=== PATIENT | female | born 1985 | race Caucasian/White ===

== ENCOUNTER 2017-02-24 12:18 | Emergency (ER) | payer OTHER ==
[2017-02-24 12:24] VITALS: BMI 22.1
[2017-02-24] MEDS ORDERED: HYDROmorphone HCL CARPU-JECT 1 MG/1 ML DISP.SYRIN IVPUSH ONE ×2 (13:03→14:07)
[2017-02-24] MEDS ORDERED: SODIUM CHLORIDE 0.9% 500 ML INFUS.BAG IV ONE (13:03)
[2017-02-24] MEDS ORDERED: ONDANSETRON 4 MG/2 ML VIAL IVPUSH ONE (13:03)
[2017-02-24] MEDS ORDERED: HYDROmorphone HCL CARPU-JECT 1 MG/1 ML DISP.SYRIN ONE ×3 (13:07→16:37)
--- NOTE | 2017-02-24 13:13 | PDOC ---
History of Present Illness - General Chief Complaint: Pain Stated Complaint: POST-OP/ PAIN, BLURRY VISION Time Seen by Provider: 02/24/17 12:48 History Source: Patient Exam Limitations: No Limitations - History of Present Illness Travel History: Yes ([facility] [place] 02/05/17) Initial Comments: 02/24/17 13:12 31 yr female s/p liposuction and tummy tuck on 02/08/17 in the [place]. Pt states she has had increasing pain with abd swelling, tenderness to left side of abdomen . Pt has no urianry complaints states she is constipated. Pt has no medical history is allergic to PCN. Pt has an IUD, LMP unknown. 02/24/17 14:16 02/24/17 16:09 02/24/17 18:18 Timing/Duration: reports: constant, getting worse Quality: reports: severe Abdominal Pain Onset Location: reports: LUQ, generalized abdomen Pain Radiation: reports: flank, back Activities at Onset: reports: none Past History - Past Medical History Allergies/Adverse Reactions: Allergies Allergy/AdvReac Type Severity Reaction Status Date / Time Penicillins Allergy Rash Verified 02/24/17 12:24 Home Medications: Ambulatory Orders No Home Medications 0 dose .ROUTE UTDICT 12/04/13 Other medical history: DENIES - Psycho/Social/Smoking Cessation Hx Anxiety: No Suicidal Ideation: No Smoking History: Never smoked Have you smoked in the past 12 months: No Number of Cigarettes Smoked Daily: 0 Hx Alcohol Use: No Drug/Substance Use Hx: No Substance Use Type: None Abd/GI Specific PMHX - Complaint Specific PMHX Colitis: No Diverticulitis: No Gall Bladder Disease: No GERD: No Hepatitis: No Irritable Bowel Synd (IBS): No Pancreatitis: No GI Ulcer Disease: No Review of Systems - Review of Systems Able to Perform ROS?: Yes Is the patient limited Brazilian proficient: No Constitutional: Yes: Symptoms Reported, Chills, Fever ABD/GI: Yes: Symptoms Reported, See HPI *Physical Exam - Vital Signs Last Vital Signs Temp Pulse Resp BP Pulse Ox 98.3 F 144 H 20 142/93 100 02/24/17 12:20 02/24/17 12:20 02/24/17 12:20 02/24/17 12:20 02/24/17 12:20 - Physical Exam General Appearance: Yes: Nourished, Moderate Distress HEENT: positive: EOMI, ARMEN, TMs Normal Neck: positive: Supple Respiratory/Chest: positive: Lungs Clear, Decreased Breath Sounds. negative: Chest Tender Cardiovascular: positive: Tachycardia, Other (apical HR regluar tachy 129 ) Gastrointestinal/Abdominal: positive: Tender, Distended Musculoskeletal: positive: Normal Inspection Extremity: positive: Normal Inspection, Normal Range of Motion, Pedal Edema ( bilateral lower extremity edema ) Integumentary: positive: Pale, Other (left flank crepitus , edema) Neurologic: positive: Fully Oriented, Alert, Normal Mood/Affect, Normal Response , Motor Strength 02/19 ED Treatment Course - LABORATORY CBC & Chemistry Diagram: 02/24/17 13:30 02/24/17 13:30 - Consult/PCP Time Called: 13:30 (surgery Forrest Randolph) Medical Decision Making - Critical Care Time Total Critical Care Time (minutes): 120 Critical Care Statement: The care of this patient involved high complexity decision making to prevent further life threatening deterioration of the patient 's condition and/or to evalute & treat vital organ system(s) failure or risk of failure. - Medical Decision Making 02/24/17 13:30 cc: abd pain and swelling s/p liposuction and tummy tuck in the DR on 02/08/17 fever, chills abd tenderness and swelling will get septic workup consult surgery pt is ambulatory making urine, has no urianry complaints. case discussed with ER attending to discuss IVAB . 02/24/17 13:31 spoke to Forrest COLEMAN of surgery and will see pt in ER. I have put a call into . 02/24/17 13:33 states pt needs transfer to another facility for plastics surgery evaluation. I have discussed this with in the ER who states pt needs to be transfered for higher level of care, pt is septic, acute renal faliure. Pt needs higher level of care at a tertiary facility. 02/24/17 14:01 02/24/17 14:07 02/24/17 14:18 Red [phone] (pt's ) cell phone number 02/24/17 14:32 Spoke with Plastic surgery resident Dr. Nam at [facility] who states pt should have abd plain film, CXR and to r/o perforated abdomen. pt to be transfered to ER at [facility] for higher level of care. This case has been discussed in detail with ER attending . 02/24/17 15:28 02/24/17 15:33 02/24/17 15:48 report given to ER attending at [facility] accepted transfer. Dr. Malave ER attending, labs discussed, PE discussed. pt to cat scan awaiting milk pickup truck driver from [facility] . I have spoke to the Red Marvin who is aware of the transfer, consent was obtained. 02/24/17 16:11 [facility] is here to milk pickup truck driver the pt. pt currently in cat scan . 02/24/17 16:46 vitals stable pain is controlled for transfer in the ambulance. All paperwork and CD has been given to the ambulance personel. *DC/Admit/Observation/Transfer Diagnosis at time of Disposition: Sepsis Qualifiers: Sepsis type: sepsis due to unspecified organism Qualified Code(s): A41.9 - Sepsis, unspecified organism - Discharge Dispostion Disposition: TRANSFER ACUTE CARE/OTHER HOSP Condition at time of disposition: Poor - Transfer to Acute Care Facility Receiving Facility: [facility] Accepting Physician:: Transfer comment: 02/24/17 16:36
[2017-02-24] MEDS ORDERED: HYDROmorphone HCL CARPU-JECT 1 MG/1 ML DISP.SYRIN IVPB ONE (13:29)
[2017-02-24] MEDS ORDERED: CIPROFLOXACIN 400 MG/D5W 200 ML IVPB ONE (13:34)
[2017-02-24] MEDS ORDERED: METRONIDAZOLE 500 MG PREMIXED 100 ML IVPB ONE ×2 (13:34→14:55)
[2017-02-24 13:53] LABS: MCH 28.4 pg (25.7-33.7); MCHC 33.2 g/dl (32.0-36.0); MEAN CELL VOLUME 85.4 fl (80-96); MEAN PLT VOLUME 6.1 fl (7.5-11.1); PLATELET COUNT 298 K/MM3 (134-434); RDW 14.4 % (11.6-15.6)
[2017-02-24 13:56] LABS: WHITE BLOOD COUNT 38.2 K/mm3 (4.0-10.0)
[2017-02-24] MEDS ORDERED: CLINDAMYCIN 900 MG PREMIX IVPB 50 ML IVPB ONE (13:57)
[2017-02-24] MEDS ORDERED: SODIUM CHLORIDE 1,000 ML IV STA (14:41)
[2017-02-24 15:03] LABS: ALBUMIN 2.8 g/dl (3.4-5.0); BILIRUBIN,TOTAL 0.6 mg/dL (0.2-1.0); CALCIUM 9.1 mg/dL (8.5-10.1); COCKROFT - GAULT 13.141; CREATININE 6.9 mg/dL (0.55-1.02); TOT PROT 6.6 g/dl (6.4-8.2)
[2017-02-24 15:09] LABS: URINE APPEARANCE SLCLOUDY; URINE BILIRUBIN NEGATIVE (NEGATIVE); URINE COLOR YELLOW; URINE GLUCOSE (UA) 1+ (NEGATIVE); URINE KETONE NEGATIVE (NEGATIVE); URINE NITRITE NEGATIVE (NEGATIVE); URINE PROTEIN NEGATIVE (NEGATIVE); URINE UROBILINOGEN NEGATIVE E.U./dl (0.2-1.0)
[2017-02-24 15:16] LABS: URINE BLOOD 2+ (NEGATIVE); URINE LEUK ESTERASE 2+ (NEGATIVE)
[2017-02-24 16:21] LABS: URINE MUCUS RARE; URINE RBC 33 /hpf (0-3); URINE WBC 40 /hpf (3-5)
[2017-02-24 18:29] LABS: HYPOCHROMIA 1+; PLATELET ESTIMATE ADEQUATE (NORMAL); POLYCHROMASIA FEW
[2017-02-25 14:49] VITALS: TEMP 98.4
[2017-02-25 15:05] VITALS: BP 122/83; PULSE 123
--- NOTE | 2017-03-05 15:15 | PDOC ---
Patient Follow-up (Call Back) - Post ED Follow - Up Chief Complaint: SIRS, Suspected/Possible Condition at time of discharge: Poor Disposition at time of original discharge: TRANSFER ACUTE CARE/OTHER HOSP - Disposition Additional Instructions/Notes: called pt as a courtesy to follow up on her transfer to [facility]. spoke with , pt is home and is doing much better.
== END 2017-02-24 16:58 | disposition short-term general hospital (02) ==
LOC: JER 12:18
PROC: 3E0337Z Introduction of Electrolytic and Water Balance Substance into Peripheral Vein, Percutaneous Approach (ICD-10-PCS; principal; 2017-02-24)
PROC: 3E03329 Introduction of Other Anti-infective into Peripheral Vein, Percutaneous Approach (ICD-10-PCS; 2017-02-24)
PROC: 3E033NZ Introduction of Analgesics, Hypnotics, Sedatives into Peripheral Vein, Percutaneous Approach (ICD-10-PCS; 2017-02-24)
PROC: 3E033GC Introduction of Other Therapeutic Substance into Peripheral Vein, Percutaneous Approach (ICD-10-PCS; 2017-02-24)
DX: A41.89 Other specified sepsis (principal)
CPT/HCPCS: 36415; 71010-TC; 74020-TC; 74176-TC; 80053; 81003; 81015; 83605; 84703; 85025; 87040; 99285-25

== ENCOUNTER 2017-03-13 08:57 | Emergency (ER) | payer OTHER ==
[2017-03-13 09:01] VITALS: BMI 23.8
--- NOTE | 2017-03-13 09:43 | PDOC ---
History of Present Illness - General Chief Complaint: Urinary Problem Stated Complaint: URINARY PROBLEM Time Seen by Provider: 03/13/17 09:10 History Source: Patient Exam Limitations: No Limitations - History of Present Illness Initial Comments: 03/13/17 09:43 Patient is here for reevaluation for urinary retention. Was seen in this emergency department 2 weeks ago, for abdominal pain, fevers, status post liposuction and tummy tuck performed in the [place] on February 08. At that time patient had no obvious sign of bowel perforation or free air in abdomen however had a grossly enlarged bladder and inability to void. Was transferred to [facility] where patient was retained for 5 days for extensive evaluations and deemed had a postoperative neurogenic bladder, and Watson catheter was placed in her discharge. Denies knowledge of any sepsis although received multiple medications while at [facility] including antibiotics. has not been feverish or with abdominal pain since her discharge approximately 10 days ago. States Watson catheter was extremely irritating therefore requested and removal was performed by urology team yesterday. Since that time patient has been unable to void. Denies fever , denies any abdominal pain however feels significant discomfort and bladder fullness. 03/13/17 09:44 Timing/Duration: unsure, 24 hours, getting worse Severity: moderate Associated Symptoms: reports: denies symptoms Past History - Travel Traveled outside of the country in the last 30 days: No Close contact w/someone who was outside of country & ill: No - Past Medical History Allergies/Adverse Reactions: Allergies Allergy/AdvReac Type Severity Reaction Status Date / Time Penicillins Allergy Rash Verified 03/13/17 09:01 Home Medications: Ambulatory Orders Cefpodoxime Proxetil [Vantin -] 200 mg PO BID 03/13/17 Other medical history: DENIES - Psycho/Social/Smoking Cessation Hx Anxiety: No Suicidal Ideation: No Smoking History: Never smoked Have you smoked in the past 12 months: No Number of Cigarettes Smoked Daily: 0 Information on smoking cessation initiated: No Hx Alcohol Use: No Drug/Substance Use Hx: No Substance Use Type: None Review of Systems - Review of Systems Able to Perform ROS?: Yes Is the patient limited Yoruba proficient: Yes Constitutional: Yes: Symptoms Reported, See HPI, Malaise. No: Fever HEENTM: No: Symptoms Reported Respiratory: Yes: See HPI. No: Symptoms reported, Cough Cardiac (ROS): No: Symptoms Reported ABD/GI: Yes: Symptoms Reported, Abdominal cramping, Other : Yes: Symptoms Reported, See HPI, Other (retention). No: Burning, Dysuria Musculoskeletal: No: Symptoms Reported Integumentary: No: Symptoms Reported Neurological: Yes: See HPI. No: Symptoms reported All Other Systems: Reviewed and Negative *Physical Exam - Vital Signs Last Vital Signs Temp Pulse Resp BP Pulse Ox 98.4 F 118 H 18 129/57 100 03/13/17 08:57 03/13/17 08:57 03/13/17 08:57 03/13/17 08:57 03/13/17 08:57 - Physical Exam General Appearance: Yes: Appropriately Dressed, Apparent Distress HEENT: positive: ARMEN, Normal ENT Inspection, TMs Normal, Pharynx Normal Neck: positive: Supple. negative: Tender Respiratory/Chest: positive: Lungs Clear, Normal Breath Sounds Cardiovascular: positive: Regular Rate Gastrointestinal/Abdominal: positive: Tender, Soft Musculoskeletal: positive: Normal Inspection Extremity: positive: Normal Capillary Refill, Normal Inspection, Normal Range of Motion Integumentary: positive: Normal Color, Dry, Warm, Pale Neurologic: positive: pasting machine offbearer II-XII NML intact, Fully Oriented, Alert, Normal Mood/ Affect, Normal Response, Motor Strength / ED Treatment Course - LABORATORY CBC & Chemistry Diagram: 03/13/17 10:28 03/13/17 10:28 Medical Decision Making - Medical Decision Making 03/13/17 11:56 Laboratory work within normal limits, patient feels much improved and drained approximately 600 mL of urine. Will discharge with Watson catheter intact and follow-up as scheduled with her urology appointment on Wednesday the at [facility]. *DC/Admit/Observation/Transfer Diagnosis at time of Disposition: History of urinary retention - Discharge Dispostion Disposition: HOME Condition at time of disposition: Stable Admit: No - Referrals Referrals: Jakob Prado MD [Primary Care Provider] - - Patient Instructions Printed Discharge Instructions: DI for Urinary Retention in Women Additional Instructions: Rest, drink lots of fluids: Teas, water, soups Avoid contact with others until fevers and symptoms resolved Lots of handwashing and good hygiene Continue [id number] medications for symptomatic relief Tylenol or Motrin for fever and pain Continue all of antibiotics until completed Followup with private physician in one week for repeat urinalysis/reevaluation Return to emergency department for worsened symptoms, fevers, dehydration - Post Discharge Activity Work/School Note: Back to Work
--- NOTE | 2017-03-13 10:19 | PDOC ---
*Physical Exam - Vital Signs Last Vital Signs Temp Pulse Resp BP Pulse Ox 98.4 F 118 H 18 129/57 100 03/13/17 08:57 03/13/17 08:57 03/13/17 08:57 03/13/17 08:57 03/13/17 08:57 - Physical Exam General Appearance: Yes: Nourished Respiratory/Chest: positive: Lungs Clear, Normal Breath Sounds Cardiovascular: positive: Regular Rhythm, Regular Rate, S1, S2 Gastrointestinal/Abdominal: positive: Normal Bowel Sounds, Tender, Other ( suprapubic ttp, fullness) Musculoskeletal: positive: Normal Inspection. negative: CVA Tenderness Extremity: positive: Normal Capillary Refill, Normal Inspection ED Treatment Course - LABORATORY CBC & Chemistry Diagram: 03/13/17 10:28 03/13/17 10:28 Medical Decision Making - Medical Decision Making 03/13/17 10:16 31 yo F with recent tummy tuck in [place], post surgical nuerogenic bladder and retention , here s/p jackman dc yesterday unable to urinate. no f/c does have abdominal pressure. plan jackman cathetar, r/o infection. sarah dc with jackman followup with urology. pt seen by [place] Brady, agree with plan and assessment 03/13/17 11:19 lab unremarkable. creatinine normal. ua no infection. will dc with leg bag has urology followup. *DC/Admit/Observation/Transfer Diagnosis at time of Disposition: History of urinary retention - Discharge Dispostion Disposition: HOME Condition at time of disposition: Stable - Referrals Referrals: Jakob Prado MD [Primary Care Provider] - - Patient Instructions Printed Discharge Instructions: DI for Urinary Retention in Women Additional Instructions: Rest, drink lots of fluids: Teas, water, soups Avoid contact with others until fevers and symptoms resolved Lots of handwashing and good hygiene Continue [id number] medications for symptomatic relief Tylenol or Motrin for fever and pain Continue all of antibiotics until completed Followup with private physician in one week for repeat urinalysis/reevaluation Return to emergency department for worsened symptoms, fevers, dehydration - Post Discharge Activity Work/School Note: Back to Work
[2017-03-13 10:46] LABS: URINE APPEARANCE CLEAR; URINE BILIRUBIN NEGATIVE (NEGATIVE); URINE BLOOD NEGATIVE (NEGATIVE); URINE COLOR YELLOW; URINE GLUCOSE (UA) NEGATIVE (NEGATIVE); URINE KETONE NEGATIVE (NEGATIVE); URINE NITRITE NEGATIVE (NEGATIVE); URINE PROTEIN NEGATIVE (NEGATIVE); URINE UROBILINOGEN NEGATIVE E.U./dl (0.2-1.0)
[2017-03-13 10:49] LABS: URINE LEUK ESTERASE 1+ (NEGATIVE)
[2017-03-13 10:51] LABS: BASOPHIL 3.3 % (0-2.0); EOSINOPHIL 5.6 % (0-4.5); MCH 29.4 pg (25.7-33.7); MCHC 33.5 g/dl (32.0-36.0); MEAN CELL VOLUME 87.7 fl (80-96); MEAN PLT VOLUME 7.1 fl (7.5-11.1); NEUTROPHILS 49.7 % (42.8-82.8); PLATELET COUNT 391 K/MM3 (134-434); RDW 14.5 % (11.6-15.6); WHITE BLOOD COUNT 4.2 K/mm3 (4.0-10.0)
[2017-03-13 11:09] LABS: ALBUMIN 3.2 g/dl (3.4-5.0); ALK PHOS 65 U/L (45-117); ANION GAP 6 (8-16); BILIRUBIN,TOTAL 0.3 mg/dL (0.2-1.0); CALCIUM 9.6 mg/dL (8.5-10.1); CO2 31 mmol/L (21-32); CREATININE 0.7 mg/dL (0.55-1.02); GLUCOSE,RANDOM 102 mg/dL (74-106); SGOT/AST 20 U/L (15-37); SGPT/ALT 23 U/L (12-78); TOT PROT 6.5 g/dl (6.4-8.2)
[2017-03-13 11:18] LABS: URINE MUCUS FEW; URINE RBC 2 /hpf (0-3); URINE WBC 31 /hpf (3-5)
[2017-03-13 11:30] VITALS: BP 107/70; PULSE 86; TEMP 98.6
== END 2017-03-13 11:30 | disposition home or self-care (01) ==
LOC: JER 08:57
PROC: 0T9B70Z Drainage of Bladder with Drainage Device, Via Natural or Artificial Opening (ICD-10-PCS; principal; 2017-03-13)
DX: R33.8 Other retention of urine (principal)
CPT/HCPCS: 36415; 80053; 81003; 81015; 84703; 85025; 87086; 99283-25